=== PATIENT | male | born 1955 | race Caucasian/White ===

== ENCOUNTER 2017-07-17 07:15 | Inpatient (IN) | END 2017-07-19 18:15 | disposition home or self-care (01) | DRG 470 | DX: M17.12 Unilateral primary osteoarthritis, left knee (principal) ==

== ENCOUNTER → 2017-07-27 | Outpatient (CLI) | payer OTHER ==
[~2017-07-27] VITALS: Ht 167.6 cm; Wt 82.7 kg
[~2017-07-27] MED LIST: ASPI325T4 PO; HYDR-906 PO; TRAM-40 PO
[2017-07-27 15:14] VITALS: BP 119/77; PULSE 106; RESP 18; Ht 167.6 cm; Wt 82.7 kg
--- NOTE | 2017-07-27 15:25 | PN ---
Date/Time of Note Date/Time of Note DATE: 07/27/17 TIME: 15:21 Outpatient Progress Note Chief Complaint Left total knee HPI Left total knee/patient has left total knee surgery, patient was recently hospitalized, patient has DJD, has minimal pain, with the pain medication, minimal swelling, no deformity, No fever chill, no redness, no discharge, minimal difficulty in walking, patient is walking with a walker, Review of Systems Left const: No Fever, no chills, no Wt. loss, no Fatigue, normal appetite, no diaphoresis. Eyes: No pain, no discharge, no redness, no visual change, no foreign body. ENT: No pain, no bleeding, no congestion, no sore throat, no dysphagia, no discharge or rhinitis. Lymph: No adenopathy, no tender nodes, no lymphedema. Resp: No SOB, no cough, no sputum, no wheezing, no chest pain. CV: No chest pain, no palpitaions, no HOWARD, no PND, no edema. GI: Normal appetite, no pain, no nausea, no vomiting, no diarrhea, no blood, no constipation. : No frequency, no urgency, no dysuria, no hematuria, no flank pain, no discharge, no bleeding. Musc: no back pain, no neck pain, left knee pain status post left knee surgery , minimal no restricted ROM. Skin: No rash, no skin lesions, no erythema, no laceration, no bruising, no pruritus. Neuro: No CANELA, no dizziness, no syncope, no seizure, no focal-weakness. Endo: No polyuria, no polydypsia, no dry-skin, no temp-intolerance. Psych: No hallucinations, no depression, no anxiety, no suicidal ideation. Ext: No edema, left knee pain, status post total left knee no ulcer, no weakness. Physical Exam Vital Signs Date Time Temp Pulse Resp B/P Pulse Ox O2 Delivery O2 Flow Rate FiO2 07/27/17 15:14 98.2 106 18 119/77 98 Room Air General Appearance: A 61 year-old male who appears well-developed, well- nourished, in no acute distress. HEENT: Head normocephalic, atraumatic. Pupils equal, round, reactive to light and accommodate. Sclerae are no jaundice. Nasal turbinates pink without erythema or nasal discharge. Mucous membranes pink and moist without lesions. Oropharynx clear without any exudate or discharge. NECK: Supple. Trachea midline, No thyromegaly, No cervical lymphadenopathy, No mass, No carotid bruits, No JVD, Carotid pulses 2+ bilaterally. PULMONARY: Clear to auscultaion bilaterally, No retractions, Chest expansion symmetric bilaterally, no rales, no ronchi, no dulness on percussion. CARDIAC: Normal SI and S2, Regular rate and rythm, no murmur, gallop, or rub. GASTROINTESTINAL: Abdomen is soft, non-tender, Non Rigid, No distention, Positive bowel sounds x4 quadrants, Liver normal. SKIN: Warm, dry, no rash, no bruise, no echmosis. EXTREMITIES: Bilateral lower extremities no edema, left knee pain and status post total knee surgery left side, no phlabitus, pulse palpable, no contracture. MUSCULOSKELETAL: Spine Normal, Non-tender, Normal range of motion, No swelling, no deformity, no clubbing, or cyanosis, the patient has no edema to bilateral lower extremities, dorsalis pedis pulses palpable bilaterally. NEUROLOGIC: The patient is awake, alert, oriented, responding to yes/no questions appropriately, moving all extremities, cranial nerve intact, normal strenght, normal power, normal coordination, normal gait. Allergies Coded Allergies: No Known Allergy (Unverified , 07/17/17) PMH DJD/left total knee surgery Social Hx No smoking or drinking, Family Hx Noncontributory Assessment/Plan Impression Left total knee surgery/DJD Plan Patient doing very well, fall precaution, Patient encouraged to follow with the primary care physician, Physical therapy, Monitor for sepsis and cellulitis, at present patient doing very well, Medications Home Meds Reported Medications Hydrocodone/Acetaminophen ([place] 5-325 Tablet) 1 Each Tablet, 1 EACH PO Q6 for PAIN LEVEL 6-10, TAB 07/27/17 Tramadol Hcl* (Ultram*) 50 Mg Tablet, 50 MG PO Q8 for PAIN, TAB 07/27/17 Aspirin* (Aspirin*) 325 Mg Tablet, 325 MG PO DAILY, TAB 07/27/17 SHABNAM HAILE MD Jul 27, 2017 15:25
== END | disposition home or self-care (01) ==
LOC: DCC 14:56
PROVIDERS: ATTEND Internal Medicine
DX: M17.12 Unilateral primary osteoarthritis, left knee (principal); Z96.652 Presence of left artificial knee joint; Z79.82 Long term (current) use of aspirin

== ENCOUNTER 2017-08-10 11:31 | Outpatient (CLI) | payer OTHER ==
[~2017-08-10] VITALS: Ht 167.6 cm; Wt 82.3 kg
[2017-08-10 11:51] VITALS: Ht 167.6 cm; Wt 82.3 kg
[2017-08-10 11:52] VITALS: BP 116/71; PULSE 103; RESP 18
--- NOTE | 2017-08-10 12:39 | PN ---
Date/Time of Note Date/Time of Note DATE: 08/10/17 TIME: 12:35 Outpatient Progress Note Chief Complaint Osteoarthritis/left total knee replacement HPI Osteoarthritis/patient osteoarthritis, patient has slight knee pain, back pain, Left total knee replacement/patient had total knee replacement, has difficulty walking, patient use walker, patient is getting physical therapy, no fever chill , minimal swelling, swelling and no deformity, Review of Systems Const: No Fever, no chills, no Wt. loss, no Fatigue, normal appetite, no diaphoresis. Eyes: No pain, no discharge, no redness, no visual change, no foreign body. ENT: No pain, no bleeding, no congestion, no sore throat, no dysphagia, no discharge or rhinitis. Lymph: No adenopathy, no tender nodes, no lymphedema. Resp: No SOB, no cough, no sputum, no wheezing, no chest pain. CV: No chest pain, no palpitaions, no HOWARD, no PND, no edema. GI: Normal appetite, no pain, no nausea, no vomiting, no diarrhea, no blood, no constipation. : No frequency, no urgency, no dysuria, no hematuria, no flank pain, no discharge, no bleeding. Musc: Left no back pain, no neck pain, no knee pain, status post total knee replacement, minimal restricted ROM. On the left knee, Skin: No rash, no skin lesions, no erythema, no laceration, no bruising, no pruritus. Neuro: No CANELA, no dizziness, no syncope, no seizure, no focal-weakness. Endo: No polyuria, no polydypsia, no dry-skin, no temp-intolerance. Psych: No hallucinations, no depression, no anxiety, no suicidal ideation. Ext: No edema, no pain, no ulcer, no weakness status post total knee replacement left side. Physical Exam Vital Signs Date Time Temp Pulse Resp B/P Pulse Ox O2 Delivery O2 Flow Rate FiO2 08/10/17 11:52 98.1 103 18 116/71 98 Room Air General Appearance: A 61 year-old male who appears well-developed, well- nourished, in no acute distress. HEENT: Head normocephalic, atraumatic. Pupils equal, round, reactive to light and accommodate. Sclerae are no jaundice. Nasal turbinates pink without erythema or nasal discharge. Mucous membranes pink and moist without lesions. Oropharynx clear without any exudate or discharge. NECK: Supple. Trachea midline, No thyromegaly, No cervical lymphadenopathy, No mass, No carotid bruits, No JVD, Carotid pulses 2+ bilaterally. PULMONARY: Clear to auscultaion bilaterally, No retractions, Chest expansion symmetric bilaterally, no rales, no ronchi, no dulness on percussion. CARDIAC: Normal SI and S2, Regular rate and rythm, no murmur, gallop, or rub. GASTROINTESTINAL: Abdomen is soft, non-tender, Non Rigid, No distention, Positive bowel sounds x4 quadrants, Liver normal. SKIN: Warm, dry, no rash, no bruise, no echmosis. EXTREMITIES: Bilateral lower extremities no edema, status post left total knee replacement, no phlabitus, pulse palpable, no contracture. MUSCULOSKELETAL: Spine Normal, Non-tender, Normal range of motion, No swelling, no deformity, no clubbing, or cyanosis, the patient has no edema to bilateral lower extremities, dorsalis pedis pulses palpable bilaterally. NEUROLOGIC: The patient is awake, alert, oriented, responding to yes/no questions appropriately, moving all extremities, cranial nerve intact, normal strenght, normal power, normal coordination, normal gait. Allergies Coded Allergies: No Known Allergy (Unverified , 07/17/17) PMH No change Social Hx No change Family Hx No change Assessment/Plan Impression Osteoarthritis Left total knee replacement Plan Patient has total knee replacement, patient may healing slowly, no redness, no fever chill, no discharge, Patient ambulate with walker, no fall, Patient encouraged to follow with the primary care physician and surgery, Medications Home Meds Reported Medications Tramadol Hcl* (Ultram*) 50 Mg Tablet, 50 MG PO Q8 for PAIN, TAB 07/27/17 Aspirin* (Aspirin*) 325 Mg Tablet, 325 MG PO DAILY, TAB 07/27/17 Discontinued Reported Medications Hydrocodone/Acetaminophen ([place] 5-325 Tablet) 1 Each Tablet, 1 EACH PO Q6 for PAIN LEVEL 6-10, TAB 07/27/17 SHABNAM HAILE MD Aug 10, 2017 12:39
== END 2017-08-10 17:00 | disposition home or self-care (01) ==
LOC: DCC 11:31
PROVIDERS: ATTEND Internal Medicine
DX: M17.12 Unilateral primary osteoarthritis, left knee (principal); Z96.652 Presence of left artificial knee joint; Z79.82 Long term (current) use of aspirin
CPT/HCPCS: G0463

== ENCOUNTER 2017-12-25 06:53 | Inpatient (IN) | END 2017-12-27 12:39 | disposition home health service (06) | DRG 470 ==